=== PATIENT | female | born 1975 | race Caucasian/White ===

== ENCOUNTER 2017-08-29 14:59 | Emergency (ER) | payer SELFPAY ==
[2017-08-29] MEDS: LORAZEPAM 1 MG TAB PO (17:28)
== END 2017-08-29 17:28 | disposition left against medical advice (07) ==
LOC: FTE 14:59
DX: F41.8 Other specified anxiety disorders (principal); J45.909 Unspecified asthma, uncomplicated
CPT/HCPCS: 99283